=== PATIENT | male | born 1965 | race Hispanic/Latino ===

== ENCOUNTER 2023-08-12 16:03 | Emergency (ER) | payer OTHER, SELFPAY ==
[2023-08-12 16:18] VITALS: BP 162/103; PULSE 67; RESP 18; TEMP 36.7; O2SAT 100
--- NOTE | 2023-08-12 16:30 | ED.URI ---
HPI - URI/Sore Throat General Chief Complaint: Upper Respiratory Infection Stated Complaint: Cold symptoms Time Seen by Provider: 08/12/23 16:30 Source: patient, RN notes reviewed and old records reviewed Mode of arrival: ambulatory Limitations: no limitations History of Present Illness HPI Narrative: 57 year old male presents to express care with cold symptoms of nasal congestion and runny nose, headache, cough since and started with sore throat on Saturday. Patient reports that he has been taking nasal spray, NyQuil and Tylenol for his symptoms with out improvement. Patient works in [employer] and has been around classrooms and student unsure of ill exposure. Patient reports that he has not had fevers. MD elicited complaint: cough, sore throat, rhinorrhea, nasal congestion and sinus pain Onset (ago): day(s) (5) Pain scale (0-10): 3 Able to tolerate fluids by mouth: Yes Treatments prior to arrival: acetaminophen and other (NyQuil,nasal spray,) Related Data Allergies Allergy/AdvReac Type Severity Reaction Status Date / Time No Known Allergies Allergy Verified 08/12/23 16:29 Review of Systems Review of Systems: CONSTITUTIONAL: Denies malaise, chills, sweats, or fever. EYES: Denies visual changes, redness, or discharge. ENT: Reports rhinorrhea, congestion, sinus pain, no otalgia and positive for sore throat. CARDIOVASCULAR: Denies chest pain, palpitations, or edema. RESPIRATORY: Reports cough.? Denies dyspnea. GASTROINTESTINAL: Denies abdominal pain, nausea, vomiting, diarrhea SKIN: Denies rash or itching. MUSCULOSKELETAL: Denies myalgia. NEUROLOGIC: Positive for headache. All systems reviewed & are unremarkable except as noted in HPI and below PMFSH Past Medical History Medical History (Updated 08/14/23 @ 22:23 by Brittni Quintana NP) Hypertension Social History Social History (Updated 08/14/23 @ 22:24 by Brittni Quintana NP) Smoking status: Never smoker Alcohol intake: current Alcohol use details: social Substance use type: does not use Living arrangements: with family Gender identity (if verbalized by the patient): Male Comments At time of signature, agree with nursing past medical, surgical, social and family history. There is no relevant family history pertinent to the presenting complaint Exam Narrative: GENERAL: Well-appearing, well-nourished, and in no acute distress. HEAD: Normocephalic EYES: PERRLA, conjunctivae clear ENT: Nares clear, turbinates edematous and erythematous, clear discharge. Mucous membranes moist.sinus pressure and headache. TM pearly castanon with dull light reflex bilaterally; no tragal tenderness. Oropharynx erythematous without lesions. Tonsils not enlarged and without exudate, no drooling, no hoarseness, no trismus, uvula midline.post nasal drainage NECK: Supple. lymphadenopathy CHEST: Clear to auscultation, breath sounds equal. No wheezing, rhonchi, rales, or stridor. No respiratory distress, speaks in full sentences.cough noted, SAO2 100% on room air HEART: Regular rate and rhythm. No murmur heard. SKIN: Warm, dry, no rash. NEURO: Alert and oriented x3. PSYCH: Normal mood and affect Course Course Emergency Course: Patient is aware of diagnosis, understands and agrees to treatment plan.? Anticipatory guidance given.? Patient agrees to follow-up as directed and is aware of reasons to seek care at the emergency department. Portions of this record may have been created with voice recognition software Level of Care: Express Care Visit Vital Signs Vital signs: Vital Signs Temperature 36.7 C 08/12/23 16:18 Pulse Rate 67 08/12/23 16:18 Respiratory Rate 18 08/12/23 16:18 Blood Pressure 162/103 H 08/12/23 16:18 Pulse Oximetry 100 08/12/23 16:18 Oxygen Delivery Room Air 08/12/23 16:18 Temperature 36.7 C 08/12/23 16:18 Pulse Rate 67 08/12/23 16:18 Respiratory Rate 18 08/12/23 16
--- NOTE | 2023-08-14 21:00 | ED_ITS ---
HPI - URI/Sore Throat General Chief Complaint: Upper Respiratory Infection Stated Complaint: Cold symptoms Time Seen by Provider: 08/12/23 16:30 Source: patient, RN notes reviewed and old records reviewed Mode of arrival: ambulatory Limitations: no limitations Related Data Allergies Allergy/AdvReac Type Severity Reaction Status Date / Time No Known Allergies Allergy Verified 08/12/23 16:29 Course Vital Signs Vital signs: Vital Signs Temperature 36.7 C 08/12/23 16:18 Pulse Rate 67 08/12/23 16:18 Respiratory Rate 18 08/12/23 16:18 Blood Pressure 162/103 H 08/12/23 16:18 Pulse Oximetry 100 08/12/23 16:18 Oxygen Delivery Room Air 08/12/23 16:18 Temperature 36.7 C 08/12/23 16:18 Pulse Rate 67 08/12/23 16:18 Respiratory Rate 18 08/12/23 16:18 Blood Pressure 162/103 H 08/12/23 16:18 Pulse Oximetry 100 08/12/23 16:18 Oxygen Delivery Room Air 08/12/23 16:18 Discharge Plan Discharge Clinical Impression: Sinusitis Qualifiers: Sinusitis location: pansinusitis Chronicity: acute Recurrence: non-recurrent Qualified Code(s): J01.40 - Acute pansinusitis, unspecified Patient Disposition: Home, Self-Care Condition: Stable Instructions: Antibiotic Form, Sinusitis (ED) Additional Instructions: Increase fluids especially juices and water [id number] cough and cold medicine of your choice for your symptoms Jayshree daily include Coricidin brand decongestant daily for sinus congestion Tylenol or ibuprofen for any fever pain Mucinex DM for cough and congestion heat to the face 20-30 minutes 4-6 times a day for pain Salt water gargles, throat lozenges or throat sprays as desired Antibiotic as directed--finished the medication If your symptoms persist, change or worsen significantly before you can contact your personal physician then please, without delay, go to the emergency department for further evaluation. Follow-up with PCP in 7-10 days or sooner if needed Follow up with PCP soon in regards to your blood pressure which is elevated above threshold for referral. Blood pressure above 120/80 may indicate pre- hypertension. blood pressure 162/103 make sure you take your blood pressure medicine daily Prescriptions: New amoxicillin-pot clavulanate 875-125 mg tablet 1 tablet PO Q12H Qty: 20 0RF fexofenadine [Jayshree Allergy] 60 mg tablet 60 mg PO Q12H Qty: 20 0RF Follow-up/Referrals: PHYSICIAN,EXHAUST MACHINE OPERATOR [Primary Care Provider] - Time of Disposition: 16:40
== END 2023-08-12 16:45 | disposition home or self-care (01) ==
PROVIDERS: Emergency Provider Registered Nurse
DX: J01.40 Acute pansinusitis, unspecified (principal); I10 Essential (primary) hypertension
CPT/HCPCS: 99213; G0463

== ENCOUNTER 2024-11-27 09:13 | Outpatient (CLI) | payer OTHER, SELFPAY ==
--- NOTE | ~2024-11-27 | MR_ITS ---
EXAMINATION: MR wrist RT wo/w con DATE: 11/27/2024 10:05 INDICATION: Right wrist pain TECHNIQUE: Magnetic resonance imaging (MRI) of the right wrist was performed without intravenous cont rast. Sequences performed include axial, sagittal and coronal T1-weighted FSE and T2-weighted FS FSE, sagittal PD-weighted FS FSE, axial T1-weighted FS FSE and postcontrast axial, sagittal and coronal T 1-weighted FS FSE. COMPARISON: None FINDINGS: Intrinsic ligaments: The scapholunate and lunotriquetral ligaments are normal. Triangular fibrocartilage complex (TFCC): The triangular fibrocartilage including its foveal and styloid attachments as well as the dorsal and volar radioulnar ligaments are normal. The ulnar collateral ligament, ulnotriquetral ligament and men iscal homologue are normal. The extensor carpi ulnaris tendon sheath is normal. Extensor wrist: Small amount of fluid and enhancing tenosynovitis extending along the extensor carpi ulnaris tendon s ana maría beginning 3 cm proximal to the ulnar styloid process. There is moderate tendinopathy and longit udinal split tearing of the extensor carpi ulnaris tendon. The remaining extensor tendons of the wris t are normal. Flexor wrist: The flexor tendons of the wrist are normal. No abnormality in the carpal tunnel with normal median n erve. Guyon's canal: Guyon's canal including the ulnar nerve and artery are normal. Bones/other: Prominent cystic change at the ulnar styloid process with mild surrounding marrow edema which could r epresent intra-articular extension ganglion cyst related to the extensor carpi ulnaris tenosynovitis. IMPRESSION: 1. Prominent extensor carpi ulnaris tenosynovitis with moderate tendinopathy and longitudinal split t earing of the tendon centered at the level of the ulnar styloid process with air is likely secondary cystic change. Reviewed, dictated and finalized at location B. [facility]FER IMPRESSION: 1. Prominent extensor carpi ulnaris tenosynovitis with moderate tendinopathy an d longitudinal split tearing of the tendon centered at the level of the ulnar s tyloid process with air is likely secondary cystic change.
== END 2024-11-27 09:14 | disposition home or self-care (01) ==
PROVIDERS: PCP Family Medicine; Visit Provider Family Medicine
DX: S69.81XD Other specified injuries of right wrist, hand and finger(s), subsequent encounter (principal); X58.XXXD Exposure to other specified factors, subsequent encounter; M65.88 Other synovitis and tenosynovitis, other site; M77.8 Other enthesopathies, not elsewhere classified
CPT/HCPCS: 73223; A9577